=== PATIENT | male | born 1950 | race Caucasian/White ===

== ENCOUNTER 2025-04-17 14:18 | Emergency (ER) | payer OTHER ==
[~2025-04-17] VITALS: Ht 180.3 cm; Wt 94.1 kg
[~2025-04-17 14:18] MED LIST: ACET-683 PO; ATOR80TA59 PO; CLOP75TA2 PO; FINA5TAB2 PO; FISH1CHW2 PO; JARD1TAB3 PO; LIDO1ADH93 TD; LISI20TA33 PO; MAGN400T35 PO; METF-838 PO; MULT-90 PO; PANT40TA29 PO; [UNRECOGNIZED DRUG - CODE] SQ
[2025-04-17] MEDS ORDERED: ISOVUE-370 76% 100 ML VIAL As Ordered ONE (14:31)
[2025-04-17 14:46] LABS: BASO # 0.0 10^3/uL (0.0-0.2); BASO % 0.2 % (0.0-1.0); EOS # 0.1 10^3/uL (0.0-0.5); EOS % 1.4 % (0.0-3.0); LYMPH # 1.8 10^3/uL (1.5-5.0); LYMPH % 18.5 % (24.0-44.0); MONO # 0.7 10^3/uL (0.0-0.8); MONO % 7.0 % (2.0-8.0); NEUTROPHILS # 7.1 10^3/uL (1.5-8.5); NEUTROPHILS % 72.7 % (36.0-66.0); PLATELET COUNT, AUTOMATED 237 10^3/uL (150-450)
[2025-04-17 15:00] LABS: INR 0.94
[2025-04-17 15:20] LABS: CALCIUM LEVEL 9.5 MG/DL (8.3-10.6); CARBON DIOXIDE LEVEL 25.0 MMOL/L (20-31); CHLORIDE LEVEL 103.0 MMOL/L (98-107); CREATININE FOR GFR 1.06 MG/DL (0.70-1.30); GLOMERULAR FILTRATION RATE 73.6 (>42); POTASSIUM SERUM 4.0 MMOL/L (3.5-5.1); SODIUM LEVEL 140.0 MMOL/L (136-145)
[2025-04-17] MEDS: KETOROLAC 30 MG/ML 1 ML VIAL IV ONE (15:38)
[2025-04-17 18:00] VITALS: BP 139/74; TEMP 97.3; O2SAT 93
[2025-04-17] MEDS ORDERED: ASPI81TA26 PO (18:32)
== END 2025-04-17 18:50 | disposition home or self-care (01) ==
LOC: M ED 14:18
DX: R42 Dizziness and giddiness (principal); G43.909 Migraine, unspecified, not intractable, without status migrainosus; I44.0 Atrioventricular block, first degree; I45.10 Unspecified right bundle-branch block; E11.9 Type 2 diabetes mellitus without complications; I10 Essential (primary) hypertension; E78.5 Hyperlipidemia, unspecified; G47.33 Obstructive sleep apnea (adult) (pediatric); K21.9 Gastro-esophageal reflux disease without esophagitis; F10.10 Alcohol abuse, uncomplicated; Z86.73 Personal history of transient ischemic attack (TIA), and cerebral infarction without residual deficits; Z79.1 Long term (current) use of non-steroidal anti-inflammatories (NSAID); Z79.84 Long term (current) use of oral hypoglycemic drugs; Z79.899 Other long term (current) drug therapy; Z79.810 Long term (current) use of selective estrogen receptor modulators (SERMs)
CPT/HCPCS: 70450; 70496; 70498; 71045; 80047; 80048; 85025; 85610; 85730; 93005; 93041; 94760; 96374; 96375; 99285; J1885; J2765; Q9967